=== PATIENT | male | born 1965 | race Caucasian/White ===

== ENCOUNTER 2016-10-29 15:21 | Inpatient (IN) | payer OTHER ==
[~2016-10-29] VITALS: Ht 177.8 cm; Wt 80.1 kg
[~2016-10-29 15:21] MED LIST: ANTABUSE250 MG PO; DESYREL 150 MG150 MG PO; DESYREL100 MG PO; GABAPENTIN300 MG PO; IBUPROFEN600 MG PO; LISINOPRIL10 MG PO; LISINOPRIL20 MG PO; NO MEDICATIONS; PRAVASTATIN SOD20 MG PO; RISPERDAL0.5 MG PO; SERTRALINE HCL100 MG PO; SERTRALINE HCL50 MG PO; TRAZODONE HCL150 MG PO; VITAMIN B-1100 MG PO; ZOLOFT50 MG PO
[2016-10-29 21:52] LABS: HEMATOCRIT 41.3 % (38.0-50.0); MCH 33.6 PG (29.0-34.0); MCHC 35.1 G/DL (30.0-36.0); MCV 95.6 FL (86-99); MEAN PLAT.VOLUME 11.6 uM^3 (9.0-12.4); PLATELET COUNT 311 K/uL (156-360); RBC DIS.WIDTH-CV 14.9 % (11.8-14.6); RED BLOOD COUNT 4.32 M/uL (4.00-5.50); WHITE BLOOD COUNT 8.3 K/uL (4.1-10.2)
[2016-10-29 21:58] LABS: POTASSIUM ND MEQ/L (3.7-5.4)
[2016-10-29 22:05] LABS: CHLORIDE 104 mEq/L (99-109); SODIUM 142 mEq/L (136-147)
[2016-10-29 22:07] LABS: GLUCOSE 55 mg/dL (70-99)
[2016-10-29 22:08] LABS: ANION GAP 25 MEQ/L (2-14)
[2016-10-29 22:09] LABS: TOTAL BILIRUBIN 0.4 mg/dL (0.0-1.0)
[2016-10-29 22:10] LABS: ALKALINE PHOSPHATASE 76 IU/L (3-129)
[2016-10-29 22:11] LABS: GFR ESTIMATE (CALCULATED) > 59 mL/min/
[2016-10-29 22:12] LABS: UREA NITROGEN (BUN) 17 mg/dL (9-23)
[2016-10-29 22:14] LABS: LIPASE 30 U/L (1.0-51.0)
[2016-10-29 22:25] LABS: POTASSIUM 3.8 mEq/L (3.7-5.4)
[2016-10-29 22:32] LABS: NO-CHARGE AST (GOT) 47 IU/L (2-34)
[2016-10-30 04:37] LABS: AMPHETAMINE NEGATIVE (500 ng/mL); BARBITURATES NEGATIVE (200 ng/mL); BENZODIAZEPINES NEGATIVE (150 ng/mL); COCAINE NEGATIVE (150 ng/mL); INTERNAL CONTROLS VALID? YES; METHADONE NEGATIVE (200 ng/mL); METHAMPHETAMINE NEGATIVE (500 ng/mL); OPIATES (MORPHINE) NEGATIVE (100 ng/mL); OXYCODONE NEGATIVE (100 ng/mL); PHENCYCLIDINE NEGATIVE (25 ng/mL); PROPOXYPHENE NEGATIVE (300 ng/mL); THC CANNABINOIDS NEGATIVE (50 ng/mL); TRICYCLIC ANTIDEPRESSANTS NEGATIVE (300 ng/mL)
[2016-10-30 04:54] VITALS: BP 110/73
[2016-10-30 07:59] VITALS: BP 147/66
[2016-10-30 16:10] VITALS: BP 158/86
[2016-10-30 21:55] VITALS: BP 158/82
[2016-10-31 07:55] VITALS: BP 158/74
[2016-10-31 16:15] VITALS: BP 186/97
[2016-11-01 07:51] VITALS: BP 158/85
[2016-11-01 15:47] VITALS: BP 147/79
[2016-11-02 07:58] VITALS: BP 161/92
[2016-11-02 15:34] VITALS: BP 147/86
[2016-11-02 21:04] VITALS: BP 148/87
[2016-11-02 21:11] VITALS: BP 148/87
[2016-11-03 09:50] VITALS: BP 171/87
[2016-11-03 15:46] VITALS: BP 152/81
[2016-11-04 09:18] VITALS: BP 152/86
[2016-11-04] MEDS ORDERED: HYDROCHLOROTHIA25 MG PO (09:43)
[2016-11-04] MEDS ORDERED: ESCITALOPRAM OX10 MG PO (09:43)
== END 2016-11-04 11:19 | disposition home or self-care (01) | DRG 881 ==
LOC: EME → EDBD 15:21 → EME 15:21 → EDOF 10-30 03:42 → 1WEST 10-30 03:42
PROVIDERS: Emergency Medicine
DX: F43.21 Adjustment disorder with depressed mood (principal); I10 Essential (primary) hypertension; R45.851 Suicidal ideations; F10.220 Alcohol dependence with intoxication, uncomplicated; Y90.8 Blood alcohol level of 240 mg/100 ml or more; F10.239 Alcohol dependence with withdrawal, unspecified
CPT/HCPCS: 71020; 80053; 83690; 84999; 85027; 90839; 97150 GO; 97165 GO; 99281; 99285; G0480; J3360; J7030

== ENCOUNTER 2018-04-13 15:01 | Emergency (ER) | payer OTHER ==
[~2018-04-13] VITALS: Ht 177.8 cm; Wt 73.5 kg
[~2018-04-13 15:01] MED LIST changes: +ESCITALOPRAM OX10 MG PO; +HYDROCHLOROTHIA25 MG PO
[2018-04-13 15:23] LABS: HEMATOCRIT 43.6 % (38.0-50.0); HEMOGLOBIN 15.5 G/DL (12.5-16.6); MCH 35.6 PG (29.0-34.0); MCHC 35.6 G/DL (30.0-36.0); PLATELET COUNT 310 K/uL (156-360); RBC DIS.WIDTH-CV 13.9 % (11.8-14.6); RBC DIS.WIDTH-SD 51.8 % (39-53); RED BLOOD COUNT 4.36 M/uL (4.00-5.50); WHITE BLOOD COUNT 9.1 K/uL (4.1-10.2)
[2018-04-13 15:35] LABS: CHLORIDE 113 mEq/L (99-109); POTASSIUM 4.1 mEq/L (3.7-5.4); SODIUM 147 mEq/L (136-147)
[2018-04-13 15:37] LABS: GLUCOSE 90 mg/dL (70-99)
[2018-04-13 15:40] LABS: SERUM ETHYL ALCOHOL 221 mg/dL
[2018-04-13 15:41] LABS: GFR ESTIMATE (CALCULATED) > 59 mL/min/ (58.99-99999)
[2018-04-13 15:42] LABS: UREA NITROGEN (BUN) 10 mg/dL (9-23)
[2018-04-13 18:03] LABS: AMPHETAMINE NEGATIVE (500 ng/mL); BARBITURATES NEGATIVE (200 ng/mL); BENZODIAZEPINES NEGATIVE (150 ng/mL); BUPRENORPHINE NEGATIVE (10 ng/mL); COCAINE NEGATIVE (150 ng/mL); METHADONE NEGATIVE (200 ng/mL); METHAMPHETAMINE NEGATIVE (500 ng/mL); OPIATES (MORPHINE) NEGATIVE (100 ng/mL); OXYCODONE NEGATIVE (100 ng/mL); PHENCYCLIDINE NEGATIVE (25 ng/mL); PROPOXYPHENE NEGATIVE (300 ng/mL); THC CANNABINOIDS NEGATIVE (50 ng/mL); TRICYCLIC ANTIDEPRESSANTS NEGATIVE (300 ng/mL)
[2018-04-13] MEDS ORDERED: THIAMINE HCL100 MG PO (20:33)
[2018-04-13] MEDS ORDERED: LIBRIUM25 MG PO (20:33)
[2018-04-13 20:40] VITALS: BP 141/102
== END 2018-04-13 21:06 | disposition home or self-care (01) ==
LOC: EME 15:01
DX: F10.129 Alcohol abuse with intoxication, unspecified (principal); F32.9 Major depressive disorder, single episode, unspecified; Y90.7 Blood alcohol level of 200-239 mg/100 ml; I10 Essential (primary) hypertension; Z91.14 Patient's other noncompliance with medication regimen; F17.200 Nicotine dependence, unspecified, uncomplicated
CPT/HCPCS: 80048; 85027; 90839; 99281; 99285; G0480